=== PATIENT | female | born 1990 | race Two or more races ===

== ENCOUNTER 2024-09-25 13:40 | Emergency (ER) | payer SELFPAY ==
[~2024-09-25] VITALS: Ht 152.4 cm; Wt 64.1 kg
[2024-09-25 14:38] VITALS: BP 117/78; PULSE 78; RESP 17; TEMP 98.9; O2SAT 100
--- NOTE | 2024-09-25 15:09 | ED.PDOC ---
History of Present Illness HPI Comments A 34 YEAR OLD FEMALE PRESENTS TO THE ED WITH COMPLAINT OF INCISION WOUND RECHECK. PATIENT STATES SHE HAD A LAPAROSCOPY DONE 4 DAYS AGO. PATIENT REPORTS SHE DID TOO MUCH PHYSICAL ACTIVITY AND NOTICED A SMALL AMOUNT OF BLEEDING TO HER INCISION SITE EARLIER TODAY, PROMPTING HER TO COME INTO THE ED TODAY FOR A WOUND RECHECK. PATIENT DENIES FEVER, CHILLS, SHORTNESS OF BREATH, CHEST PAIN, ABDOMINAL PAIN, NAUSEA, VOMITING, HEADACHE, OR OTHER COMPLAINTS. NO OTHER SYMPTOMS OR MODIFYING FACTORS AT THIS TIME. PATIENT IS ALERT, ORIENTED X 4, AND HAS STEADY GAIT. Chief Complaint: Wound Check Time Seen by MD: 13:50 Reviewed Notes: Nurses Notes, Medications, Allergies Allergies: Coded Allergies: NO KNOWN ALLERGIES (Unverified , 09/25/24) Information Source: Patient Mode of Arrival: Ambulatory Severity: Mild Timing: Days Duration: Since onset, Days Prehospital treatment: None Medication Refill: For: Other (INCISION WOUND RECHECK) Past Medical History PAST MEDICAL HISTORY: Denies Surgical History: Denies all surgeries EXTRA HAND History: No Pertinent EXTRA HAND History Family History Family History: Reviewed,noncontributory to illness Social History Smoker: Non-Smoker Alcohol: Denies ETOH Use Drugs: Denies Drug Use Lives In: Home Constitutional: denies: chills, diaphoresis, fatigue, fever, malaise, sweats, weakness, others EENTM: denies: blurred vision, double vision, ear bleeding, ear discharge, ear drainage, ear pain, ear ringing, eye pain, eye redness, hearing loss, mouth pain, mouth swelling, nasal discharge, nose bleeding, nose congestion, nose pain, photophobia, tearing, throat pain, throat swelling, voice changes, others Respiratory: denies: cough, hemoptysis, orthopnea, SOB at rest, shortness of breath, SOB with excertion, stridor, wheezing, others Cardiovascular: denies: chest pain, dizzy spells, diaphoresis, Dyspnea on exertion, edema, irregular heart beat, left arm pain, lightheadedness, palpitations, PND, syncope, others Gastrointestinal: denies: abdomen distended, abdominal pain, blood streaked bowels, constipated, diarrhea, dysphagia, difficulty swallowing, hematemesis, melena, nausea, poor appetite, poor fluid intake, rectal bleeding, rectal pain, vomiting, others Genitourinary: denies: abnormal vagina bleeding, burning, dyspareunia, dysuria, flank pain, frequency, hematuria, incontinence, pain, , vagina discharge, urgency, others Neurological: denies: dizziness, fainting, headache, left sided numbness, left sided weakness, numbness, paresthesia, pre-existing deficit, right sided numbness, right sided weakness, seizure, speech problems, tingling, tremors, weakness, others Musculoskeletal: denies: back pain, gout, joint pain, joint swelling, muscle pain, muscle stiffness, neck pain, others Integumetry: reports: wounds (UMBILICAL REGION ); denies: bruises, change in color, change in hair/nails, dryness, laceration, lesions, lumps, rash, others Allergic/Immunocompromised: denies: Difficulty Healing, Frequent Infections, Hives, Itching, others Hematologic/Lymphatic: denies: anemia, blood clots, easy bleeding, easy bruising, swollen glands, others Endocrine: denies: excessive hunger, excessive sweating, excessive thirst, excessive urination, flushing, intolerance to cold, intolerance to heat, unexplained weight gain, unexplained weight loss, others Psychiatric: denies: anxiety, bipolar disorder, depression, hopeless, panic disorder, schizophrenia, sleepless, suicidal, others All Other Systems: Reviewed and Negative Physical Exam General Appearance: No Apparent Distress, Normal HEENT: Normal ENT Inspection, PERRL/EOMI, Pharynx Normal, TMs Normal Neck: Full Range of Motion, Non-Tender, Normal, Normal Inspection Respiratory: Chest Non-Tender, Lungs Clear, No Accessory Muscle Use, No Respiratory Distress, Normal Breath Sounds Cardiovascular: No Edema, No JVD, No Murmur, No Gallop, Normal Peripheral Pulses, Regular Rate/Rhythm Breast Exam: Deferred Gastrointestinal: No Organomegaly, Non Tender, No Pulsatile Mass, Normal Bowel Sounds, Soft Genitalia: Deferred Pelvic: Deferred Rectal: Deferred Extremities: No calf tenderness, Normal capillary refill, Normal inspection, N ormal range of motion, Non-tender, No pedal edema Musculoskeletal : Apperance: Normal Neurologic: Alert, 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 ) Peripheral Pulses: 2+ carotid (R), 2+ carotid (L) Lymphatic: No Adenopathy Was a procedure done? Was a procedure done?: No Differential Dx Considerations may include: INCISION WOUND RECHECK, WOUND INFECTION X-Ray, Labs, Meds, VS Vital Signs Date Time Temp Pulse Resp B/P (MAP) Pulse Ox O2 Delivery O2 Flow Rate FiO2 09/25/24 14:38 78 17 100 Room Air 09/25/24 14:38 98.9 77 17 117/78 (91) 100 98.9 09/25/24 13:49 99.3 74 18 111/72 (85) 100 99.3 X-Ray, Labs, Meds, VS Comment EXTERNAL MEDICAL RECORDS REVIEWED: [NONE] INDEPENDENT HISTORIANS: [NONE] SOCIAL DETERMINANTS OF HEALTH: [NONE] LABS ORDERED: NONE REVIEWED AND INTERPRETED RESULTS: NONE IMAGING ORDERED: NONE TREATMENTS ORDERED: PATIENT'S INCISION WOUND WAS CLEANED USING NORMAL SALINE. PROCEDURES PERFORMED: NONE CRITICAL CARE TIME: NONE I HAVE DISCUSSED THE PATIENT WITH THE ATTENDING PHYSICIAN DR. HUA AND HE AGREES WITH THE PATIENT'S PLAN OF CARE AND DISPOSITION. BASED ON HISTORY OF PRESENT ILLNESS, AND PHYSICAL EXAM, PATIENT WILL BE DISCHARGED HOME. SHARED DECISION MAKING: PATIENT INSTRUCTED TO FOLLOW UP WITH PRIMARY CARE PROVIDER IN 1-2 DAYS FOR RE-EVALUATION OF SYMPTOMS. PATIENT VERBALIZES UNDERSTANDING TO RETURN TO ED FOR NEW OR WORSENING SYMPTOMS OR IF FOLLOW UP WITH PCP CANNOT BE OBTAINED. PATIENT FEELS COMFORTABLE GOING HOME AT THIS TIME. ALL QUESTIONS ADDRESSED AT TIME OF DISCHARGE. Time of 1ST Reevaluation: 15:18 Reevaluation 1ST: Improved Patient Education/Counseling: Diagnosis, Treatment, Need For Follow Up Family Education/Counseling: Diagnosis, Treatment, Need For Follow Up Medical Screening: No EMC Exist At This Time Departure 1 Departure Time of Disposition: 15:18 Impression: Primary Impression: Encounter for wound re-check Disposition: 01 HOME / SELF CARE / HOMELESS Condition: Stable Additional Instructions: FOLLOW-UP WITH PCP IN 1 TO 2 DAYS. TAKE MEDICATIONS PRESCRIBED. RETURN TO ED FOR ANY NEW OR WORSENING SYMPTOMS. Discharged With: Self, Spouse Critical Care Note Critical Care Time?: No Stability Stability form required: No I personally scribed for DEBORAH JAVIER ([email or web address]) on 09/25/24 at 15:09. Electronically submitted by Serafin Alejandro ([email or web address]). DEBORAH JAVIER Sep 25, 2024 15:09
== END 2024-09-25 15:19 | disposition home or self-care (01) ==
LOC: ER 13:40
DX: Z48.00 Encounter for change or removal of nonsurgical wound dressing (principal)

== ENCOUNTER 2025-01-17 04:37 | Inpatient (IN) | payer OTHER ==
[~2025-01-17] VITALS: Ht 170.2 cm; Wt 72.6 kg
[2025-01-17] MEDS: ONDANSETRON HCL 4 MG/2 ML VIAL IV ONE (05:41)
[2025-01-17] MEDS: SODIUM CHLORIDE 0.9% 1,850 ML IV ONE (05:41)
[2025-01-17] MEDS: MORPHINE SULFATE 4 MG/ML SYR/VIAL IV ONE (05:43)
--- NOTE | 2025-01-17 05:48 | ED.PDOC ---
History of Present Illness HPI Comments 34-year-old female brought in by EMS complaining of severe abdominal pain, nausea and vomiting. Pertinent history of gallstones, kidney stones status post lithotripsy, multiple ruptured ovarian cysts, 3x C-sections, laparoscopic, partial hysterectomy- ovaries intact, and medical marijuana use. Patient reports sudden, unprovoked onset of pain at 2:30 a.m. which woke her up from her sleep. Pain originates in her right lower quadrant abdominal region and radiates directly to her back. She reports associated nausea and vomiting and describes vomitus as brown in appearance, with mucus and food chunks. Symptoms feels similar to when she had a kidney stone in the past. Patient also reports on recent partial hysterectomy performed at [place] 1 month ago following a laparoscopic procedure done at [facility] in September 2024 due to complications due to adhesions from previous C-sections. Patient still has her gallbladder. Patient denies having any bloody or bilious vomitus, diarrhea, constipation, dysuria, hematuria, fever, chills, or further associated symptoms. 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 Past Medical History PAST MEDICAL HISTORY: Gallstones, Kidney Stones (Status post lithotripsy) Surgical History: (3x), Hysterectomy (Partial hysterectomy-ovaries intact) Surgical History (Other): Lithotripsy 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 Moist mucous membranes.) Neck: Full Range of Motion, Normal Inspection Respiratory: Lungs Clear, No Accessory Muscle Use, No Respiratory Distress, Normal Breath Sounds Cardiovascular: No Edema, No JVD, Regular Rate/Rhythm Breast Exam: Deferred Gastrointestinal: RLQ, RUQ, Soft, Tenderness, Other (Right flank and right- sided abdominal tenderness to palpation) Genitalia: Deferred Pelvic: Deferred Rectal: Deferred Extremities: Normal inspection, Normal range of motion, Non-tender, No pedal edema Neurologic: Alert (Oriented x4), Other (No gross focal deficit) Cerebellar Function: NOT DONE Reflexes: NOT DONE Skin: Dry, Normal Color, Warm Lymphatic: NOT DONE Was a procedure done? Was a procedure done?: No Differential Dx Considerations may include: Kidney stone with colic, ruptured ovarian cyst, enteritis, colitis, diverticular disease, appendicitis, bowel obstruction, ischemic bowel, UTI, among others X-Ray, Labs, Meds, VS Vital Signs Date Time Temp Pulse Resp B/P (MAP) Pulse Ox O2 Delivery O2 Flow Rate FiO2 01/17/25 06:50 75 22 118/79 01/17/25 05:44 97.9 70 20 129/79 (96) 99 97.9 01/17/25 05:44 70 20 99 Room Air 01/17/25 05:43 78 25 129/79 01/17/25 04:45 97.6 75 17 139/57 98 97.6 Lab Test 01/17/25 07:01 01/17/25 05:34 Range/Units Lactic Acid Level Pending 2.6 *H 0.4-2.0 mmol/L White Blood Count 8.2 4.4-10.8 10^3/uL Red Blood Count 4.61 4.0-5.20 10^6/uL Hemoglobin 13.9 12.2-16.2 g/dL Hematocrit 40.3 36.0-46.0 % Mean Corpuscular Volume 87.5 80.0-100.0 fL Mean Corpuscular Hemoglobin 30.2 28.0-32.0 pg Mean Corpuscular Hemoglobin Concent 34.5 32.0-36.0 g/dL Red Cell Distribution Width 14.5 H 11.8-14.3 % Platelet Count 296 140-450 10^3/uL Mean Platelet Volume 6.9 6.9-10.8 fL Neutrophils (%) (Auto) 70.9 37.0-80.0 % Lymphocytes (%) (Auto) 20.1 10.0-50.0 % Monocytes (%) (Auto) 6.3 0.0-12.0 % Eosinophils (%) (Auto) 2.0 0.0-7.0 % Basophils (%) (Auto) 0.7 0.0-2.0 % Neutrophils # (Auto) 5.8 1.6-8.6 10 ^3/uL Lymphocytes # (Auto) 1.6 0.4-5.4 10 ^3/uL Monocytes # (Auto) 0.5 0-1.3 10 ^3/uL Eosinophils # (Auto) 0.2 0-0.8 10 ^3/uL Basophils # (Auto) 0.1 0-0.2 10 ^3/uL Nucleated Red Blood Cells 0.1 % Sodium Level 139 136-145 mmol/L Potassium Level 3.6 3.5-5.1 mmol/L Chloride Level 106 98-107 mmol/L Carbon Dioxide Level 21 20-31 mmol/L Anion Gap 12 5-15 Blood Urea Nitrogen 12 9-23 mg/dL Creatinine 0.73 0.550-1.02 mg/dL Glomerular Filtration Rate Calc 111 >90 mL/min BUN/Creatinine Ratio 16.4 10.0-20.0 Serum Glucose 111 H 74-106 mg/dL Calcium Level 9.2 8.7-10.4 mg/dL Total Bilirubin 0.3 0.2-1.0 mg/dL Aspartate Amino Transferase (AST) 17 13-40 U/L Alanine Aminotransferase (ALT) 23 7-40 U/L Alkaline Phosphatase 101 46-116 U/L Total Protein 7.0 5.7-8.2 g/dL Albumin 4.6 3.2-4.8 g/dL Lipase 33 12-53 U/L Current Medications Medications (Trade) Dose Ordered Sig/Sadaf Route Start Time Stop Time Status Last Admin Sodium Chloride 1,850 ml @ 1,850 mls/hr ONCE ONCE IV 01/17/25 05:15 01/17/25 06:14 DC 01/17/25 05:41 Morphine Sulfate 4 mg ONCE ONCE IV 01/17/25 05:15 01/17/25 05:17 DC 01/17/25 05:43 Ondansetron HCl (Zofran) 4 mg ONCE ONCE IV 01/17/25 05:15 01/17/25 05:17 DC 01/17/25 05:41 Ketorolac Tromethamine (Toradol Injection) 30 mg ONCE ONCE IV 01/17/25 06:30 8/4/25 06:33 DC 01/17/25 06:38 Hydromorphone HCl (Dilaudid Injection) 1 mg ONCE ONCE IV 01/17/25 06:30 01/17/25 06:33 DC 01/17/25 06:50 Magnesium Sulfate/ Dextrose 100 ml @ 100 mls/hr Q1H IV 01/17/25 06:30 01/17/25 08:29 01/17/25 06:41 PROCEDURE(s): ABPL - CT AB PEL WO CON-NO ORAL OR IV REASON: severe abd pain s/p hysterectomy ORDER NUMBER(s): [id number], ACCESSION NUMBER(s): [id number] Exam: CT CT AB PEL WO CON-NO ORAL OR IV History: severe abd pain s/p hysterectomy Comparison Study: None Technique: Multidetector spiral CT of the abdomen was performed from lung bases to pubic symphysis. Imaging was performed without IV contrast. Axial, coronal and sagittal multiplanar reformats were obtained from the axial data set by the technologist. Radiation Dose : 1. Abdomen/Pelvis: CTDIvol 8.69 mGy, DLP 452.39 mGy*cm. Findings: Evaluation of solid organs is limited due to lack of intravenous contrast use. Lung Bases: No acute or significant lung base finding. Normal heart size. No pleural or pericardial effusion. Liver: The liver is normal in size. No focal lesions. Gallbladder and Biliary Tree: Hyperdense material within the gallbladder likely represents sludge, however, soft tissue density lesion can not be completely excluded. Spleen: Unremarkable Pancreas: The pancreas is grossly normal in appearance. Adrenal Glands: Unremarkable Kidneys: Moderate right hydronephrosis and dilatation of the proximal ureter secondary to a partially obstructing proximal ureteral calculus measuring 4 mm. Additional nonobstructing punctate pelvocaliceal calculi noted on the right. The left kidney is grossly normal without calculi or hydronephrosis. Bladder: Grossly unremarkable for degree of distention. Bowel: The stomach is grossly normal in appearance. Small bowel and colon are normal in caliber and distribution. The appendix is normal. Ascites: Absent Lymphadenopathy: No mesenteric, retroperitoneal or periportal lymphadenopathy. Abdominal Wall and Mesentery: Unremarkable. Vasculature: The visualized abdominal aorta is normal in size and caliber. Atherosclerotic vascular calcifications. Evaluation of abdominal and pelvic vessels is limited due to lack of intravenous contrast. Pelvic Organs: Unremarkable Musculoskeletal: No aggressive focal bony lesions, acute fractures or dislocation. IMPRESSION: 1. Moderate right hydronephrosis and proximal ureteral dilatation secondary to a partially obstructing proximal ureteral calculus. Additional nonobstructing punctate pelvocaliceal calculi noted. 2. Hyperdense material within the gallbladder, likely representing sludge, however, soft tissue density lesion can not be completely excluded on a noncontrast exam. Radiation optimization: All CT scans at this facility use at least one of these dose optimization techniques: automated exposure control mA and/or kV adjustment per patient size (includes targeted exams where dose is matched to clinical indication) or iterative reconstruction. X-Ray, Labs, Meds, VS Comment 34-year-old female with a history of gallstones, kidney stones status post lithotripsy, multiple ruptured ovarian cysts, 3x C-sections, laparoscopic, partial hysterectomy-ovaries intact, and medical marijuana use complaining of severe right-sided abdominal and flank pain, nausea and vomiting Vitals remarkable for BP 139/57 Exam remarkable for severe distress, right-sided abdominal and flank tenderness to palpation Rhythm strip independently interpreted by me: Sinus rhythm, rate 85, no ectopy. CT abdomen and pelvis IMPRESSION: 1. Moderate right hydronephrosis and proximal ureteral dilatation secondary to a partially obstructing proximal ureteral calculus. Additional nonobstructing punctate pelvocaliceal calculi noted. 2. Hyperdense material within the gallbladder, likely representing sludge, however, soft tissue density lesion can not be completely excluded on a noncontrast exam. CBC, comprehensive metabolic panel and lipase unremarkable, lactate 2.6, UA pending Patient treated with the following in the ED: 30 cc/kilogram normal saline IV bolus, morphine 4 mg IV, Zofran 4 mg IV, Dilaudid 1 mg IV, Toradol 30 mg IV, magnesium rider 2 g IV, Rocephin 1 g IV On re-evaluation patient has had partial improvement of pain. Vitals were stable. Plan is to admit the patient for pain control and Urology evaluation. Time of 1ST Reevaluation: 05:45 Reevaluation 1ST: Unchanged Patient Education/Counseling: Diagnosis, Treatment Family Education/Counseling: Diagnosis, Treatment SEPSIS Sepsis Screen Date sepsis recognized/suspect: Jan 17, 2025 Time Sepsis recognized/suspect: 0546 Recent Procedure: No On Antibiotic Therapy: No Respiratory Rate >20: No Heart Rate >90: No Temp<36 C (96.8 F) or >38.3 C: No SBP <90 or MAP <65 mmHG: No New Acute Mental Status Change: No Is the patient on CPAP, BIPAP,: No Physician Orders Urinalysis (01/17/25 05:15) Ct Ab Pel Wo Con-No Oral Or Iv (01/17/25 05:15) Magnesium Sulfate 1gm/100ml (01/17/25 06:30) Vital Signs Date Time Temp Pulse Resp B/P (MAP) Pulse Ox O2 Delivery O2 Flow Rate FiO2 01/17/25 06:50 75 22 118/79 01/17/25 05:44 97.9 70 20 129/79 (96) 99 97.9 01/17/25 05:44 70 20 99 Room Air 01/17/25 05:43 78 25 129/79 01/17/25 04:45 97.6 75 17 139/57 98 97.6 Laboratory Tests Test 01/17/25 05:34 01/17/25 07:01 Lactic Acid Level 2.6 mmol/L (0.4-2.0) *H Pending White Blood Count 8.2 10^3/uL (4.4-10.8) Medications Medications Dose Ordered Sig/Sadaf Route Start Time Stop Time Status Last Admin Dose Admin Hydromorphone HCl 1 mg ONCE ONCE IV 01/17/25 06:30 01/17/25 06:33 DC 01/17/25 06:50 Ketorolac Tromethamine 30 mg ONCE ONCE IV 01/17/25 06:30 01/17/25 06:33 DC 01/17/25 06:38 Magnesium Sulfate/ Dextrose 100 ml @ 100 mls/hr Q1H IV 01/17/25 06:30 01/17/25 08:29 01/17/25 06:41 Morphine Sulfate 4 mg ONCE ONCE IV 01/17/25 05:15 01/17/25 05:17 DC 01/17/25 05:43 Ondansetron HCl 4 mg ONCE ONCE IV 01/17/25 05:15 01/17/25 05:17 DC 01/17/25 05:41 Sodium Chloride 1,850 ml @ 1,850 mls/hr ONCE ONCE IV 01/17/25 05:15 01/17/25 06:14 DC 01/17/25 05:41 Departure 1 Departure Time of Disposition: 06:44 Impression: Primary Impression: Hydronephrosis concurrent with and due to calculi of kidney and ureter Additional Impressions: Intractable abdominal pain Nausea and vomiting Disposition: ADMITTED INPATIENT Admit to: Med Surg Condition: Guarded Critical Care Note Critical Care Time?: No Stability Stability form required: No Heart Score Heart Score: Heart Score Response (Comments) Value History N/A 0 EKG N/A 0 Age N/A 0 Risk Factors N/A 0 Troponin N/A 0 Total 0 LAURA KING MD Jan 17, 2025 05:48
--- NOTE | 2025-01-17 05:50 | DVH ---
Exam: CT CT AB PEL WO CON-NO ORAL OR IV History: severe abd pain s/p hysterectomy Comparison Study: None Technique: Multidetector spiral CT of the abdomen was performed from lung bases to pubic symphysis. I maging was performed without IV contrast. Axial, coronal and sagittal multiplanar reformats were obta ined from the axial data set by the technologist. Radiation Dose : 1. Abdomen/Pelvis: CTDIvol 8.69 mGy, DLP 452.39 mGy*cm. Findings: Evaluation of solid organs is limited due to lack of intravenous contrast use. Lung Bases: No acute or significant lung base finding. Normal heart size. No pleural or pericardial effusion. Liver: The liver is normal in size. No focal lesions. Gallbladder and Biliary Tree: Hyperdense material within the gallbladder likely represents sludge, ho wever, soft tissue density lesion can not be completely excluded. Spleen: Unremarkable Pancreas: The pancreas is grossly normal in appearance. Adrenal Glands: Unremarkable Kidneys: Moderate right hydronephrosis and dilatation of the proximal ureter secondary to a partially obstructing proximal ureteral calculus measuring 4 mm. Additional nonobstructing punctate pelvocalic eal calculi noted on the right. The left kidney is grossly normal without calculi or hydronephrosis. Bladder: Grossly unremarkable for degree of distention. Bowel: The stomach is grossly normal in appearance. Small bowel and colon are normal in caliber and d istribution. The appendix is normal. Ascites: Absent Lymphadenopathy: No mesenteric, retroperitoneal or periportal lymphadenopathy. Abdominal Wall and Mesentery: Unremarkable. Vasculature: The visualized abdominal aorta is normal in size and caliber. Atherosclerotic vascular c alcifications. Evaluation of abdominal and pelvic vessels is limited due to lack of intravenous contr ast. Pelvic Organs: Unremarkable Musculoskeletal: No aggressive focal bony lesions, acute fractures or dislocation. IMPRESSION: 1. Moderate right hydronephrosis and proximal ureteral dilatation secondary to a partially obstructin g proximal ureteral calculus. Additional nonobstructing punctate pelvocaliceal calculi noted. 2. Hyperdense material within the gallbladder, likely representing sludge, however, soft tissue densi ty lesion can not be completely excluded on a noncontrast exam. Radiation optimization: All CT scans at this facility use at least one of these dose optimization leigh hniques: automated exposure control mA and/or kV adjustment per patient size (includes targeted exam s where dose is matched to clinical indication) or iterative reconstruction.
[2025-01-17 05:51] LABS: Hematocrit 40.3 % (36.0-46.0); Hemoglobin 13.9 g/dL (12.2-16.2); Mean Corpuscular Hemoglobin 30.2 pg (28.0-32.0); Mean Corpuscular Volume 87.5 fL (80.0-100.0); Nucleated Red Blood Cells % 0.1 %
[2025-01-17 06:11] LABS: Alanine Aminotransferase 23 U/L (7-40); Albumin 4.6 g/dL (3.2-4.8); Alkaline Phosphatase 101 U/L (46-116); Anion Gap 12 (5-15); BUN/Creatinine Ratio 16.4 (10.0-20.0); Blood Urea Nitrogen 12 mg/dL (9-23); Calcium 9.2 mg/dL (8.7-10.4); Carbon Dioxide 21 mmol/L (20-31); Chloride 106 mmol/L (98-107); Lipase 33 U/L (12-53); Potassium 3.6 mmol/L (3.5-5.1); Sodium 139 mmol/L (136-145); Total Protein 7.0 g/dL (5.7-8.2)
[2025-01-17 06:16] LABS: Lactic Acid w/Reflex 2.6 mmol/L (0.4-2.0)
[2025-01-17 06:17] LABS: Bilirubin, Total 0.3 mg/dL (0.2-1.0); Glucose 111 mg/dL (74-106)
[2025-01-17] MEDS: KETOROLAC TROMETH 30 MG/ML 1ML VIAL IV ONE (06:38)
[2025-01-17] MEDS: MAGNESIUM SULFATE 1GM/100ML 100 ML IV SCH (06:41)
[2025-01-17] MEDS: HYDROmorphone HCL 2 MG/ML VL/or syr IV ONE (06:50)
[2025-01-17 08:00] VITALS: TEMP 98; O2SAT 98
[2025-01-17] MEDS: cefTRIAXone 1GM/50ML D5W 50 ML IV ONE (09:20)
[2025-01-17 09:23] VITALS: BP 138/68; PULSE 68; RESP 17
[2025-01-17] MEDS ORDERED: ACETAMINOPHEN 325 MG TAB PO PRN (10:00)
[2025-01-17] MEDS ORDERED: TAMSULOSIN HYDROCHLORIDE 0.4 MG CAP PO ONE (10:00)
[2025-01-17] MEDS ORDERED: HYDROcodone-ACET 5/325MG TAB PO PRN (10:00)
[2025-01-17] MEDS ORDERED: ONDANSETRON HCL 4 MG/2 ML VIAL IV PRN (10:00)
[2025-01-17] MEDS ORDERED: SODIUM CHLORIDE 0.9% 1,000 ML IV SCH (10:00)
[2025-01-17] MEDS ORDERED: DOCUSATE SOD 100 MG CAP PO SCH (10:00)
--- NOTE | 2025-01-17 10:10 | DVHHP2 ---
History of Present Illness Reason for Visit: Abdominal pain History of Present Illness Kari Enamorado is a 34-year-old female with past medical history of kidney stones, and gallstones, who came to the hospital for severe abdominal pain. Patient states she was woken up this morning by the abdominal pain. She states it starts in her RLQ and radiates to her right flank, and that it feels similar to when she had kidney stones in the past. Past Surgical History: (x 3), Hysterectomy Smoke: <1 pack per day (Vape) ALCOHOL: none Drugs: Marijuana Lives: with Family Domestic Violence: Neg Review of Systems Constitutional: No: Fever, Chills, Sweats, Weakness, Malaise, Other Eyes: No: Pain, Vision change, Conjunctivae inflammation, Eyelid inflammation, Other, Redness ENT: No: Ear pain, Ear discharge, Nose pain, Nose discharge, Nose congestion, Mouth pain, Mouth swelling, Throat pain, Throat swelling, Other Respiratory: No: Cough, Dry, Shortness of breath, SOB with excertion, Wheezing, Hemoptysis, Pleuritic Pain, Sputum, Wheezing, Other Cardiovascular: No: Chest Pain, Palpitations, Orthopnea, Paroxysmal Noc. Dyspnea, Edema, Lt Headedness, Other Gastrointestinal: Nausea, Vomiting, Abdominal Pain (RLQ); No: Diarrhea, Constipation, Melena, Hematochezia, Other Genitourinary: No Dysuria, No Frequency, No Incontinence, No Hematuria, No Retention, No Other Musculoskeletal: back pain (right flank); No: other, neck pain, shoulder pain, arm pain, hand pain, leg pain, foot pain Skin: No: Rash, Lesions, Jaundice, Bruising, Other Allergies: Coded Allergies: NO KNOWN ALLERGIES (Unverified , 09/25/24) Exam Vital Signs Vital Signs Date Time Temp Pulse Resp B/P (MAP) Pulse Ox O2 Delivery O2 Flow Rate FiO2 01/17/25 09:23 68 17 138/68 01/17/25 08:00 98 Room Air 01/17/25 08:00 98.0 98.0 General Appearance: Alert, Oriented X3, Cooperative, mild distress HEENT: Atraumatic, PERRLA Respiratory: Clear to auscultation, Normal air movement Cardiovascular: Regular rate, Normal S1, Normal S2, No murmurs Abdominal: Normal bowel sounds, Soft, Other (RLQ pain) Extremities: No clubbing, No cyanosis, No edema, Normal pulses Skin: No rashes, No breakdown, No significant lesion Neuro: Normal gait, Normal speech, Strength at 5/5 X4 ext Psych/Mental Status: Mental status NL, Mood NL Labs/Xrays Labs Test 01/17/25 07:01 01/17/25 05:34 Range/Units Lactic Acid Level 2.1 *H 0.4-2.0 mmol/L White Blood Count 8.2 4.4-10.8 10^3/uL Red Blood Count 4.61 4.0-5.20 10^6/uL Hemoglobin 13.9 12.2-16.2 g/dL Hematocrit 40.3 36.0-46.0 % Mean Corpuscular Volume 87.5 80.0-100.0 fL Mean Corpuscular Hemoglobin 30.2 28.0-32.0 pg Mean Corpuscular Hemoglobin Concent 34.5 32.0-36.0 g/dL Red Cell Distribution Width 14.5 H 11.8-14.3 % Platelet Count 296 140-450 10^3/uL Mean Platelet Volume 6.9 6.9-10.8 fL Neutrophils (%) (Auto) 70.9 37.0-80.0 % Lymphocytes (%) (Auto) 20.1 10.0-50.0 % Monocytes (%) (Auto) 6.3 0.0-12.0 % Eosinophils (%) (Auto) 2.0 0.0-7.0 % Basophils (%) (Auto) 0.7 0.0-2.0 % Neutrophils # (Auto) 5.8 1.6-8.6 10 ^3/uL Lymphocytes # (Auto) 1.6 0.4-5.4 10 ^3/uL Monocytes # (Auto) 0.5 0-1.3 10 ^3/uL Eosinophils # (Auto) 0.2 0-0.8 10 ^3/uL Basophils # (Auto) 0.1 0-0.2 10 ^3/uL Nucleated Red Blood Cells 0.1 % Sodium Level 139 136-145 mmol/L Potassium Level 3.6 3.5-5.1 mmol/L Chloride Level 106 98-107 mmol/L Carbon Dioxide Level 21 20-31 mmol/L Anion Gap 12 5-15 Blood Urea Nitrogen 12 9-23 mg/dL Creatinine 0.73 0.550-1.02 mg/dL Glomerular Filtration Rate Calc 111 >90 mL/min BUN/Creatinine Ratio 16.4 10.0-20.0 Serum Glucose 111 H 74-106 mg/dL Calcium Level 9.2 8.7-10.4 mg/dL Total Bilirubin 0.3 0.2-1.0 mg/dL Aspartate Amino Transferase (AST) 17 13-40 U/L Alanine Aminotransferase (ALT) 23 7-40 U/L Alkaline Phosphatase 101 46-116 U/L Total Protein 7.0 5.7-8.2 g/dL Albumin 4.6 3.2-4.8 g/dL Lipase 33 12-53 U/L Exam: CT CT AB PEL WO CON-NO ORAL OR IV Findings: Evaluation of solid organs is limited due to lack of intravenous contrast use. Lung Bases: No acute or significant lung base finding. Normal heart size. No pleural or pericardial effusion. Liver: The liver is normal in size. No focal lesions. Gallbladder and Biliary Tree: Hyperdense material within the gallbladder likely represents sludge, however, soft tissue density lesion can not be completely excluded. Spleen: Unremarkable Pancreas: The pancreas is grossly normal in appearance. Adrenal Glands: Unremarkable Kidneys: Moderate right hydronephrosis and dilatation of the proximal ureter secondary to a partially obstructing proximal ureteral calculus measuring 4 mm. Additional nonobstructing punctate pelvocaliceal calculi noted on the right. The left kidney is grossly normal without calculi or hydronephrosis. Bladder: Grossly unremarkable for degree of distention. Bowel: The stomach is grossly normal in appearance. Small bowel and colon are normal in caliber and distribution. The appendix is normal. Ascites: Absent Lymphadenopathy: No mesenteric, retroperitoneal or periportal lymphadenopathy. Abdominal Wall and Mesentery: Unremarkable. Vasculature: The visualized abdominal aorta is normal in size and caliber. Atherosclerotic vascular calcifications. Evaluation of abdominal and pelvic vessels is limited due to lack of intravenous contrast. Pelvic Organs: Unremarkable Musculoskeletal: No aggressive focal bony lesions, acute fractures or dislocation. IMPRESSION: 1. Moderate right hydronephrosis and proximal ureteral dilatation secondary to a partially obstructing proximal ureteral calculus. Additional nonobstructing punctate pelvocaliceal calculi noted. 2. Hyperdense material within the gallbladder, likely representing sludge, however, soft tissue density lesion can not be completely excluded on a no ncontrast exam. SEPSIS Sepsis Screen Date sepsis recognized/suspect: Jan 17, 2025 Time Sepsis recognized/suspect: 05 Recent Procedure: No On Antibiotic Therapy: No Respiratory Rate >20: No Heart Rate >90: No Temp<36 C (96.8 F) or >38.3 C: No SBP <90 or MAP <65 mmHG: No New Acute Mental Status Change: No Is the patient on CPAP, BIPAP,: No Physician Orders Urinalysis (01/17/25 05:15) Ct Ab Pel Wo Con-No Oral Or Iv (01/17/25 05:15) Admit (01/17/25 09:59) Code Status (01/17/25 09:59) Hydrocodone-Acet 5/325mg Tab ([place] 532 (01/17/25 10:00) Ondansetron Hcl (Zofran) (01/17/25 10:00) Docusate Sodium Capsule (Colace Capsule) (01/17/25 10:00) Complete Blood Count (01/18/25 04:00) Comprehensive Metabolic Panel (01/18/25 04:00) Condition: Serious (01/17/25 09:59) Acetaminophen Tablet (Tylenol Tablet) (01/17/25 10:00) * Urology Consult (01/17/25 09:59) NS (01/17/25 10:00) Ketorolac Injection (Toradol Injection) (01/17/25 10:00) Metoclopramide Injection (Reglan Injecti (01/17/25 10:00) Tamsulosin Hydrochloride (Flomax) (01/17/25 10:00) Tamsulosin Hydrochloride (Flomax) (01/18/25 18:00) Strain All Urine For Stones (01/17/25 09:59) Ceftriaxone Ivpb Rocephin (01/18/25 09:00) Vital Signs Date Time Temp Pulse Resp B/P (MAP) Pulse Ox O2 Delivery O2 Flow Rate FiO2 01/17/25 09:23 68 17 138/68 01/17/25 09:22 78 16 136/88 01/17/25 08:00 62 16 98 Room Air 01/17/25 08:00 98.0 62 18 100/60 (73) 98 98.0 01/17/25 06:50 75 22 118/79 01/17/25 05:44 97.9 70 20 129/79 (96) 99 97.9 01/17/25 05:44 70 20 99 Room Air 01/17/25 05:43 78 25 129/79 01/17/25 04:45 97.6 75 17 139/57 98 97.6 Laboratory Tests Test 01/17/25 05:34 01/17/25 07:01 Lactic Acid Level 2.6 mmol/L (0.4-2.0) *H 2.1 mmol/L (0.4-2.0) *H White Blood Count 8.2 10^3/uL (4.4-10.8) Medications Medications Dose Ordered Sig/Sadaf Route Start Time Stop Time Status Last Admin Dose Admin Ceftriaxone Sodium 50 ml @ 100 mls/hr ONCE ONCE IV 01/17/25 06:30 01/17/25 06:59 DC 01/17/25 09:20 100 MLS/HR Hydromorphone HCl 1 mg ONCE ONCE IV 01/17/25 06:30 01/17/25 06:33 DC 01/17/25 06:50 1 MG Ketorolac Tromethamine 30 mg ONCE ONCE IV 01/17/25 06:30 01/17/25 06:33 DC 01/17/25 06:38 30 MG Magnesium Sulfate/ Dextrose 100 ml @ 100 mls/hr Q1H IV 01/17/25 06:30 01/17/25 08:29 DC 01/17/25 08:25 100 MLS/HR Morphine Sulfate 4 mg ONCE ONCE IV 01/17/25 05:15 01/17/25 05:17 DC 01/17/25 05:43 4 MG Ondansetron HCl 4 mg ONCE ONCE IV 01/17/25 05:15 01/17/25 05:17 DC 01/17/25 05:41 4 MG Sodium Chloride 1,850 ml @ 1,850 mls/hr ONCE ONCE IV 01/17/25 05:15 01/17/25 06:14 DC 01/17/25 05:41 1,850 MLS/HR Assessment/Plan Assessment/Plan Assessment: Hydronephrosis concurrent with and due to calculi of kidney and ureter, Gallstones, Intractable abdominal pain, Nausea and vomiting, Lactic acidosis, Plan: Admit to Med-Surg, Urology consult, Consider IR consult if hydronephrosis worsens, IV antibiotics, Pain management, PRN antiemetics, Manage/Monitor electrolytes closely, Plan discussed with: Patient, Spouse My Orders Orders - DEMARCUS RUVALCABA Procedure Category Date Status Time Admit ADMIT 01/17/25 Transmitted 09:59 Code Status CODE 01/17/25 Transmitted 09:59 Hydrocodone-Acet PHA 01/17/25 Transmitted 5/325mg Tab ([place] 10:00 Ondansetron Hcl PHA 01/17/25 Transmitted (Zofran) 10:00 Docusate Sodium PHA 01/17/25 Transmitted Capsule (Colace 10:00 Complete Blood Count LAB 01/18/25 Verified 04:00 Comprehensive LAB 01/18/25 Verified Metabolic Panel 04:00 Condition: Serious TUCKER 01/17/25 In Process 09:59 Acetaminophen Tablet PHA 01/17/25 Transmitted (Tylenol Tablet) 10:00 * Urology Consult CONS 01/17/25 Transmitted 09:59 NS PHA 01/17/25 Transmitted 10:00 Ketorolac Injection PHA 01/17/25 Transmitted (Toradol Injection) 10:00 Metoclopramide PHA 01/17/25 Transmitted Injection (Reglan 10:00 Tamsulosin PHA 01/17/25 Transmitted Hydrochloride (Flomax) 10:00 Tamsulosin PHA 01/18/25 Transmitted Hydrochloride (Flomax) 18:00 Strain All Urine For TUCKER 01/17/25 In Process Stones 09:59 Ceftriaxone Ivpb PHA 01/18/25 Verified Rocephin 09:00 Date of Service: Jan 17, 2025 Billing Provider: DEMARCUS RUVALCABA Common Visit Codes: [id number] INP/OBS CARE (MOD) DEMARCUS RUVALCABA Jan 17, 2025 10:10
[2025-01-17] MEDS: KETOROLAC TROMETH 30 MG/ML 1ML VIAL IV PRN (10:41)
[2025-01-17] MEDS: METOCLOPRAMIDE HCL 5MG/ml INJ 2ml VIAL IV PRN (10:42)
--- NOTE | 2025-01-17 18:57 | DVHINCON2 ---
Date of service: Jan 17, 2025 Referring Physician ER Reason for Consultation Moderate right hydronephrosis due to 4 mm proximal ureteral stone History of Present Illness Patient was discharged before urological evaluation could be rendered. Allergies: Coded Allergies: NO KNOWN ALLERGIES (Unverified , 09/25/24) Current Medications Current Medications Medications (Trade) Dose Ordered Sig/Sadaf Route PRN Reason Start Time Stop Time Status Last Admin Magnesium Sulfate/ Dextrose 100 ml @ 100 mls/hr Q1H IV 01/17/25 06:30 01/17/25 08:29 DC 01/17/25 08:25 Acetaminophen/ Hydrocodone Bitart ([place] 5/325MG Tab) 1 tab Q4HP PRN PO MODERATE PAIN (4-6 PAIN SCALE) 01/17/25 10:00 01/17/25 11:16 DC Ondansetron HCl (Zofran) 4 mg Q4HP PRN IV NAUSEA / VOMITING 01/17/25 10:00 01/17/25 11:16 DC Docusate Sodium (Colace Capsule) 100 mg BID PO 01/17/25 10:00 01/17/25 11:16 DC Acetaminophen (Tylenol Tablet) 650 mg Q6HP PRN PO PAIN SCALE 1-3 OR TEMP>100.4 01/17/25 10:00 01/17/25 11:16 DC Sodium Chloride 1,000 ml @ 125 mls/hr Q8H IV 01/17/25 10:00 01/17/25 11:16 DC Ketorolac Tromethamine (Toradol Injection) 30 mg Q6HPRN PRN IV SEVERE PAIN (7-10 PAIN SCALE) 01/17/25 10:00 01/17/25 11:16 DC 01/17/25 10:41 Metoclopramide HCl (Reglan Injection) 10 mg Q6HPRN PRN IV NAUSEA / VOMITING 01/17/25 10:00 01/17/25 11:16 DC 01/17/25 10:42 Tamsulosin HCl (Flomax) 0.4 mg QPM PO 01/18/25 18:00 01/17/25 11:16 DC Ceftriaxone Sodium 50 ml @ 100 mls/hr DAILY@09 IV 01/18/25 09:00 01/17/25 11:16 DC Vital Signs Vital Signs Date Time Temp Pulse Resp B/P (MAP) Pulse Ox O2 Delivery O2 Flow Rate FiO2 8/4/25 09:23 68 17 138/68 01/17/25 08:00 98 Room Air 01/17/25 08:00 98.0 98.0 Labs/Diagnostic Data Labs Test 01/17/25 07:01 01/17/25 05:34 Range/Units Lactic Acid Level 2.1 *H 0.4-2.0 mmol/L White Blood Count 8.2 4.4-10.8 10^3/uL Red Blood Count 4.61 4.0-5.20 10^6/uL Hemoglobin 13.9 12.2-16.2 g/dL Hematocrit 40.3 36.0-46.0 % Mean Corpuscular Volume 87.5 80.0-100.0 fL Mean Corpuscular Hemoglobin 30.2 28.0-32.0 pg Mean Corpuscular Hemoglobin Concent 34.5 32.0-36.0 g/dL Red Cell Distribution Width 14.5 H 11.8-14.3 % Platelet Count 296 140-450 10^3/uL Mean Platelet Volume 6.9 6.9-10.8 fL Neutrophils (%) (Auto) 70.9 37.0-80.0 % Lymphocytes (%) (Auto) 20.1 10.0-50.0 % Monocytes (%) (Auto) 6.3 0.0-12.0 % Eosinophils (%) (Auto) 2.0 0.0-7.0 % Basophils (%) (Auto) 0.7 0.0-2.0 % Neutrophils # (Auto) 5.8 1.6-8.6 10 ^3/uL Lymphocytes # (Auto) 1.6 0.4-5.4 10 ^3/uL Monocytes # (Auto) 0.5 0-1.3 10 ^3/uL Eosinophils # (Auto) 0.2 0-0.8 10 ^3/uL Basophils # (Auto) 0.1 0-0.2 10 ^3/uL Nucleated Red Blood Cells 0.1 % Sodium Level 139 136-145 mmol/L Potassium Level 3.6 3.5-5.1 mmol/L Chloride Level 106 98-107 mmol/L Carbon Dioxide Level 21 20-31 mmol/L Anion Gap 12 5-15 Blood Urea Nitrogen 12 9-23 mg/dL Creatinine 0.73 0.550-1.02 mg/dL Glomerular Filtration Rate Calc 111 >90 mL/min BUN/Creatinine Ratio 16.4 10.0-20.0 Serum Glucose 111 H 74-106 mg/dL Calcium Level 9.2 8.7-10.4 mg/dL Total Bilirubin 0.3 0.2-1.0 mg/dL Aspartate Amino Transferase (AST) 17 13-40 U/L Alanine Aminotransferase (ALT) 23 7-40 U/L Alkaline Phosphatase 101 46-116 U/L Total Protein 7.0 5.7-8.2 g/dL Albumin 4.6 3.2-4.8 g/dL Lipase 33 12-53 U/L Plan discussed with: Other KARELY SANCHEZ MD Jan 17, 2025 18:56
[2025-01-18] MEDS ORDERED: cefTRIAXone 1GM/50ML D5W 50 ML IV SCH (09:00)
[2025-01-18] MEDS ORDERED: TAMSULOSIN HYDROCHLORIDE 0.4 MG CAP PO SCH (18:00)
== END 2025-01-17 11:11 | disposition left against medical advice (07) | DRG 694 ==
LOC: EDBD 04:37 → ER 04:37 → OVERFLOW 09:59
PROVIDERS: ADMIT Nurse Practitioner Family; ATTEND Nurse Practitioner Family
DX: N13.2 Hydronephrosis with renal and ureteral calculous obstruction (principal); E87.20 Acidosis, unspecified; N28.82 Megaloureter; K80.20 Calculus of gallbladder without cholecystitis without obstruction; Z98.891 History of uterine scar from previous surgery; Z90.711 Acquired absence of uterus with remaining cervical stump; Z87.891 Personal history of nicotine dependence
CPT/HCPCS: 36415; 74176; 80053; 83605; 83690; 85025; 96361; 96374; G0378; J1885; J2405